=== PATIENT | female | born 1930 | race Caucasian/White ===

== ENCOUNTER 2019-02-28 21:11 | Emergency (ER) | payer MEDICARE, OTHER ==
[~2019-02-28] VITALS: Ht 149.9 cm; Wt 60.9 kg
[~2019-02-28 21:11] MED LIST: SYNTHROID0.075 MG PO
[2019-02-28 21:28] VITALS: Ht 149.9 cm; Wt 60.9 kg
[2019-02-28 21:37] LABS: BASOPHIL % 0.4 % (0-2); PLATELET COUNT 244 x10^3mcL (130-400); RED CELL DISTRIBUTION WIDTH 15.5 % (11.5-14.5)
[2019-02-28 21:41] LABS: CALCIUM 8.7 mg/dL (8.5-10.1); CARBON DIOXIDE 26.9 mmol/L (21-32); CHLORIDE SERUM 104 mmol/L (98-107); GLUCOSE SERUM 98 mg/dL (74-106); POTASSIUM SERUM 4.7 mmol/L (3.5-5.1); SODIUM SERUM 139 mmol/L (136-145)
[2019-02-28 21:46] LABS: ALBUMIN 3.3 g/dL (3.4-5.0); ALKALINE PHOSPHATASE 359 U/L (46-116); ALT/SGPT 278 U/L (14-59); AST/SGOT 328 U/L (15-37); BILIRUBIN TOTAL 1.73 mg/dL (0.20-1.00); LIPASE 265 IU/L (73-393); TOTAL PROTEIN, SERUM 6.8 g/dL (6.4-8.2)
[2019-03-01 00:38] VITALS: BP 112/59
== END 2019-03-01 00:38 | disposition home or self-care (01) ==
LOC: ED 21:11
PROVIDERS: Emergency Medicine
DX: K21.9 Gastro-esophageal reflux disease without esophagitis (principal); R94.5 Abnormal results of liver function studies; E03.9 Hypothyroidism, unspecified; Z90.49 Acquired absence of other specified parts of digestive tract
CPT/HCPCS: 36415